=== PATIENT | female | born 1970 | race Caucasian/White ===

== ENCOUNTER → 2019-11-24 | Outpatient (CLI) | payer OTHER ==
--- NOTE | 2019-11-26 15:08 | PATH ---
[address] [address] PATHOLOGY RPT PROCEDURE Name: KURTIS SALINAS Room: [facility]#: [id number] Admission: 11/24/19 Date of : 66 Discharge: Report #: [id number] Path Case #: [id number] [facility] Accession Number: [id number] . 01 Material submitted: . breast - RIGHT BREAST STEREOTACTIC BIOPSY FOR CALCIFICATIONS. Modifiers: right . 01 Clinical history: . Right breast stereotactic biopsy for calcifications . 01 Frozen section diagnosis: . . /QMS . 02 Diagnosis: Right breast calcifications: - Benign breast tissue with fibroadenoma/fibroadenomatosis and coarse calcifications, negative for atypia. See comment. (JUSTUS:pit 11/26/2019) QTP 11/26/2019 1044 Local . 02 Comment: Reviewed with Dr. Kera Romero who agrees with the diagnosis. (JUSTUS:pit 11/26/2019) . 02 Electronically signed: . Angel Pickard MD, Pathologist NPI- [id number] . 01 Gross description: . The specimen is received in formalin, labeled "Kurtis Salinas, right breast calcifications" and consists of a blue cassette containing needle cores of yellow fibroadipose tissue measuring 2.5 x 1.5 x 0.6 cm which are transferred to cassette A1. Received separately is a needle core of yellow fibroadipose tissue measuring 2.6 x 0.7 x 0.5 cm which is entirely submitted in A2. The specimen is collected on 11/24/2019 at 1:45 PM and placed in formalin at 1:55 PM. The cold ischemic time is 10 minutes and the total formalin fixation time is greater than 6 hours less than 72 hours. (SDY; 11/25/2019) SYU/SYU 11/25/2019 1024 Local . 02 Pathologist provided ICD-10: D24.1 . 02 CPT . [id number] [place] [address] PATHOLOGY RPT PROCEDURE Name: KURTIS SALINAS Room: [facility]#: [id number] Admission: 11/24/19 Date of : 66 Discharge: Report #: [id number] Path Case #: [id number] Specimen Comment: A courtesy copy of this report has been sent to [phone] Specimen Comment: [phone], , Specimen Comment: Report sent to ,DR NEAL,DR PLAZA / DR TREVINO Performed at: [address], [place], [place] [id number] MD Abdelrahman Corrigan MD Phone: [phone] Performed at: 02 [facility] [address], [place], [place] [id number] MD Angel Pickard MD Phone: [phone]
== END | disposition home or self-care (01) ==
LOC: M.ULTRA 12:40
DX: R92.1 Mammographic calcification found on diagnostic imaging of breast (principal); D24.1 Benign neoplasm of right breast